=== PATIENT | female | born 1950 | race Caucasian/White ===

== ENCOUNTER 2017-10-06 17:11 | Emergency (ER) | payer MEDICARE, SELFPAY ==
--- NOTE | 2017-10-06 17:17 | XR_ITS ---
XR ankle LT min 3V, XR foot LT min 3V Ordering Physician: Colleen Winters Patient Age: 67 years: Female HISTORY: ITS.REASON: pain think I sprained it Ankle injury. Sprain. Lateral foot and ankle pain. TECHNIQUE LEFT FOOT 3 view LEFT ANKLE: 3 view left ankle COMPARISON :No previous ======= LEFT FOOT 3 view Acute fracture transverses the base of fifth metatarsal The fracture line continues to the proximal articular surface of fifth metatarsal , at its articulation with the cuboid. = This reflects Pseudo-Talley fracture here. Just over 1 mm distraction lateral aspect, but no significant displacement or offset. Specifically note Congruent relationships remain articular cortex There is ossification overlying proximal lateral margin of the cuboid. Accessory ossicles can occur here-os perineum. However on close inspection there is irregular appearance at its junction with the cuboid on the oblique foot image. Best Cannot exclude a subtle fracture here with this appearance. A soft tissue swelling is seen overlying the lateral aspect of foot and extending towards ankle. Advanced arthritic changes are noted at the first MTP joint. Joint space narrowing with marginal osteophytes. Sclerosis with near [id number] appearance at first MTP joint. The other toes appear intact. Only minor if any changes perhaps at the PIP joint fifth toe. Fusion between the middle and distal phalanx fifth toe. ====== LEFT ANKLE 3 views The irregular curvilinear calcification is seen just inferior to tip of the lateral malleolus. On this may indeed reflect a small avulsion fracture here as well.. Dystrophic calcification from old injury could yield a similar appearance. Prominent soft tissue swelling is seen overlying this area lateral malleolus further supporting the suspicion of acute injury There is some minimal dystrophic calcification just off the tip of the medial malleolus which likely reflects old feature. The ankle mortise intact. The dome of talus intact. Subtalar region unremarkable. Again the fracture base of fifth metatarsal again noted A generous plantar calcaneal spur noted ~9 mm length --------IMPRESSION 1. Pseudo-Talley fracture fifth metatarsal Nondisplaced Fracture transversing base of fifth metatarsal 2.. Curvilinear fragment or/ calcification just inferior to the tip of lateral malleolus. --Suspect for avulsion fracture particularly with the prominent associated focal soft tissue swelling here as well. (Dystrophic calcifications from old injury could yield some appearance) 3. Osseous density overlying the cuboid.- Initially felt was accessory ossicle; however there is slight irregular contour at underlying cuboid, thus cannot exclude fracture fragment here. 4. Findings requireOrthopedic follow-up and evaluation
[2017-10-06 17:45] VITALS: BP 143/84; PULSE 96; RESP 20; TEMP 36.6; O2SAT 100; BMI 42.8
--- NOTE | 2017-10-06 18:00 | HMH.EDUTC ---
[facility] [place] Clinical Impression: Fracture of metatarsal of left foot, closed Qualifiers: Encounter type: initial encounter Metatarsal bone: fifth Fracture alignment: nondisplaced Qualified Code(s): S92.355A - Nondisplaced fracture of fifth metatarsal bone, left foot, initial encounter for closed fracture Disposition: Home, Self-Care Condition on Discharge: Good Instructions: How to Use Crutches, DI for Foot Fracture, How To Perform RICE (Rest, Ice, Compress, Elevate), How to Take Care of Your Splint Additional Instructions: * non weight bearing until you see Dr. Yoon * Rest * ice w/ a cold pack or frozen bag of vegetables 15-20 mins several times a day but no more than once a hour. Do this for up to 3 days. * splint until you see specialist. Can not get wet. Do not remove. Check to ensure not too tight by monitoring you toes as we discussed. If getting more painful or changing colors, be sure to follow up for splint check * Elevate with foot above your heart as much as possible to help reduce swelling and therefore, pain * Ibuprofen every 6 hours as needed for pain and inflammation. If you need something more, you can take tylenol every 4 hours as needed as long as your primary care provider has told you it is ok to take these medications based on your history Referrals: Annie Yoon DPM [Physician] - (Call Monday. Report seen in [facility] Monday evening. Diagnosed 5th metatarsal fracture. Placed in orthoglass splint and made nonweight bearing. Told to call for follow up appointment) Time of Disposition: 18:05 Medical Decision Making - Eros Inquiry Pt receiving controlled substance: No Vital Signs: 10/06/17 17:45 10/06/17 18:28 Temperature 97.9 F 97.9 F Temperature Source Oral Oral Pulse Rate 96 H Pulse Rate [Right Radial] 96 H Respiratory Rate 20 20 Blood Pressure 143/84 Blood Pressure [Right Arm] 143/84 Blood Pressure Mean [Right Arm] 103 Blood Pressure Source Automatic Cuff Blood Pressure Source [Right Arm] Automatic Cuff Blood Pressure Position Sitting Blood Pressure Position [Right Arm] Sitting 02 Sat by Pulse Oximetry 100 Oxygen Delivery Method Room Air Room Air - Radiology Data #1 Image(s): Ankle, Foot/Toes Image Reviewed: Yes I reviewed the patient's radiology image w/the ED provider Preliminary Findings: Abnormal Rvwd w/ Dr. Urbina, ER . nondisplaced fracture base 5th metacarpal [facility] [place] - General Stated complaint: AO [id number] foot injury Time Seen by Provider: 10/06/17 17:50 Mode of Arrival: Family Vehicle Source of Information: Patient Limitations: No Limitations Description of Symptoms (Recalled from Triage Doc. by RN): PT STATES THIS AFTERNOON SHE MISSED A STEP AND FELL INJURING HER L FOOT. HEENT Symptoms (Recalled from RN notes): No Resp Symptoms (Recalled from RN notes): No Skin Symptoms (Recalled from RN notes): No MS Symptoms (Recalled from RN notes): Yes (INJURED LEFT FOOT) Functional Status (Recalled from RN notes): NA - History of Present Illness Provider Complaint: c/o left foot and ankle pain. Started this afternoon after missing a step causing her to fall completely. I think I twisted it . + bruising. pain worse with weight bearing. Hasn't taken anything. Wanting xrays. - Related Data Allergies Allergy/AdvReac Type Severity Reaction Status Date / Time No Known Drug Allergies Allergy Unknown Verified 10/06/17 17:52 - Worker's Comp Is this a Worker's Comp case?: No [facility] History I have reviewed the patient's past medical history: Yes Medical History: Denies:: Cancer, Diabetes Mellitus Type 1, Diabetes Mellitus Type 2, Hypertension, MRSA Other Medical History: Reports: Sinus Problems, Other (allergies) Other Surgeries: Yes: Other Amputation: No Fractures: No - Social History Smoking Status: Never smoker Alcohol Intake: never - Psychiatric History Expresses thoughts of harming self/others: None Suicide Plan Description: No Plan ROS Obtained:
--- NOTE | 2017-10-06 18:05 | ED_ITS ---
[facility] [place] Clinical Impression: Fracture of metatarsal of left foot, closed Qualifiers: Encounter type: initial encounter Metatarsal bone: fifth Fracture alignment: nondisplaced Qualified Code(s): S92.355A - Nondisplaced fracture of fifth metatarsal bone, left foot, initial encounter for closed fracture Disposition: Home, Self-Care Condition on Discharge: Good Instructions: How to Use Crutches, DI for Foot Fracture, How To Perform RICE ( Rest, Ice, Compress, Elevate), How to Take Care of Your Splint Additional Instructions: * non weight bearing until you see Dr. Yoon * Rest * ice w/ a cold pack or frozen bag of vegetables 15-20 mins several times a day but no more than once a hour. Do this for up to 3 days. * splint until you see specialist. Can not get wet. Do not remove. Check to ensure not too tight by monitoring you toes as we discussed. If getting more painful or changing colors, be sure to follow up for splint check * Elevate with foot above your heart as much as possible to help reduce swelling and therefore, pain * Ibuprofen every 6 hours as needed for pain and inflammation. If you need something more, you can take tylenol every 4 hours as needed as long as your primary care provider has told you it is ok to take these medications based on your history Referrals: Annie Yoon DPM [Physician] - (Call Monday. Report seen in [facility] Monday evening. Diagnosed 5th metatarsal fracture. Placed in orthoglass splint and made nonweight bearing. Told to call for follow up appointment) Time of Disposition: 18:05 Medical Decision Making - Eros Inquiry Pt receiving controlled substance: No Vital Signs: 10/06/17 17:45 10/06/17 18:28 Temperature 97.9 F 97.9 F Temperature Source Oral Oral Pulse Rate 96 H Pulse Rate [Right Radial] 96 H Respiratory Rate 20 20 Blood Pressure 143/84 Blood Pressure [Right Arm] 143/84 Blood Pressure Mean [Right Arm] 103 Blood Pressure Source Automatic Cuff Blood Pressure Source [Right Arm] Automatic Cuff Blood Pressure Position Sitting Blood Pressure Position [Right Arm] Sitting 02 Sat by Pulse Oximetry 100 Oxygen Delivery Method Room Air Room Air - Radiology Data #1 Image(s): Ankle, Foot/Toes Image Reviewed: Yes I reviewed the patient's radiology image w/the ED provider Preliminary Findings: Abnormal Rvwd w/ Dr. Urbina, ER . nondisplaced fracture base 5th metacarpal [facility] [place] HPI - General Stated complaint: AO [id number] foot injury Time Seen by Provider: 10/06/17 17:50 Mode of Arrival: Family Vehicle Source of Information: Patient Limitations: No Limitations Description of Symptoms (Recalled from Triage Doc. by RN): PT STATES THIS AFTERNOON SHE MISSED A STEP AND FELL INJURING HER L FOOT. HEENT Symptoms (Recalled from RN notes): No Resp Symptoms (Recalled from RN notes): No Skin Symptoms (Recalled from RN notes): No MS Symptoms (Recalled from RN notes): Yes (INJURED LEFT FOOT) Functional Status (Recalled from RN notes): NA - History of Present Illness Provider Complaint: c/o left foot and ankle pain. Started this afternoon after missing a step causing her to fall completely. I think I twisted it . + bruising. pain worse with weight bearing. Hasn't taken anything. Wanting xrays. - Related Data Allergies Allergy/AdvReac Type Severity Reaction Status Date / Time No Known Drug Allergies Allergy Unknown Verified 10/06/17 17:52 - Worker's Comp
[2017-10-06 18:28] VITALS: BP 143/84; PULSE 96; RESP 20; TEMP 36.6; O2SAT 100
== END 2017-10-06 18:25 | disposition home or self-care (01) ==
PROVIDERS: Emergency Provider Nurse Practitioner Family; Family Provider Family Medicine; PCP Family Medicine
DX: S92.355A Nondisplaced fracture of fifth metatarsal bone, left foot, initial encounter for closed fracture (principal); W10.9XXA Fall (on) (from) unspecified stairs and steps, initial encounter; Y92.019 Unspecified place in single-family (private) house as the place of occurrence of the external cause
CPT/HCPCS: 29515; G0463; 73610; 73630; 99203

== ENCOUNTER → 2017-11-14 10:42 | Outpatient (CLI) | payer MEDICARE, SELFPAY ==
--- NOTE | 2017-11-14 10:42 | XR_ITS ---
XR foot wt bearing LT 3V HISTORY: ITS.REASON: pain ORDERING PHYSICIAN: Annie Yoon DPM PATIENT AGE: 67 years COMPARISON: None FINDINGS: There are moderate osteoarthritic changes of the first metatarsophalangeal joint. There is a healing fracture of the base of the fifth metatarsal with minimal distraction of the fracture fragments by 2 to 3 mm. No other significant anomalies evident. IMPRESSION: Healing nondisplaced transverse fracture at the base of the fifth metatarsal Osteoarthritis of the first MTP joint
== END ==
PROVIDERS: Visit Provider Podiatrist
DX: T14.8XXA Other injury of unspecified body region, initial encounter (principal)
CPT/HCPCS: 73630

== ENCOUNTER → 2017-12-11 11:38 | Outpatient (CLI) | payer MEDICARE, SELFPAY ==
--- NOTE | 2017-12-11 11:41 | XR_ITS ---
XR foot wt bearing LT 3V Ordering Physician: Annie Yoon DPM Patient Age: 67 years: Female HISTORY: ITS.REASON: FRACTURE FOLLOW-UP TECHNIQUE: 3 views left foot weightbearing COMPARISON :Left foot 11/14/2017 10/06/2017 FINDINGS Healing transverse fracture at base of fifth metatarsal again viewed. Stable position with progressive healing. We again see the mild distraction of the inferior fracture on oblique view and lateral view but this feature appears stable. It appears to be filling in with healing bone a more central at fifth MT Osteoarthritic first MTP joint. Plantar calcaneal spur measuring 11 to 12 mm. Mild pes planus noted Initially question slight additional sclerosis at the base of the third metatarsal on the frontal projection but appears intact and stable on the oblique view. There may be some early arthritic changes at the third and possibly fourth tarsometatarsal metatarsal joint. IMPRESSION: Progressive healing fracture base of fifth metatarsal
== END ==
PROVIDERS: Visit Provider Podiatrist
DX: T14.8XXA Other injury of unspecified body region, initial encounter (principal)
CPT/HCPCS: 73630

== ENCOUNTER → 2017-12-12 08:00 | Outpatient (CLI) | payer MEDICARE, SELFPAY ==
--- NOTE | 2017-12-12 08:07 | XR_ITS ---
XR ankle wt bearing LT min 3V HISTORY: Left ankle pain ITS.REASON: fracture follow-up ORDERING PHYSICIAN: Annie Yoon DPM PATIENT AGE: 67 years Comparison: ... 10/06/2017 FINDINGS: The small bone fragment is again seen just adjacent to the lateral malleolus and likely an old unfused avulsion chip fracture. A semiacute chip fracture cannot be entirely ruled out. There is spurring of the tip of the medial malleolus with mild focal narrowing of the ankle mortise medially.. Again noted is mild pes planus and prominent plantar calcaneal spur. IMPRESSION: Basically stable-appearing ankle with probably old chip fracture tip of lateral malleolus along with prominent spurring the medial malleolus. The fact that there appears be slightly less soft tissue swelling laterally on today's exam is somewhat favor a recent acute chip fracture and suggest continued follow-up
== END ==
PROVIDERS: Visit Provider Podiatrist
DX: S99.192A Other physeal fracture of left metatarsal, initial encounter for closed fracture (principal); S82.62XA Displaced fracture of lateral malleolus of left fibula, initial encounter for closed fracture
CPT/HCPCS: 73610

== ENCOUNTER 2018-03-07 15:00 | Outpatient (RCR) | payer MEDICARE, SELFPAY ==
--- NOTE | 2018-02-28 15:58 | HMH.PTOPEV ---
PT Outpatient Evaluation Rehab PT Outpatient Evaluation Start: 02/28/18 15:07 Freq: Status: Active Protocol: Document 02/28/18 15:46 RUBI (Rec: 02/28/18 15:54 PHORCRISTHIAN [id number]) Electronically Signed By Andrei Tiwari, PT 02/28/18 15:46 Outpatient Therapy Subjective History Subjective History Pt is 67 yowf who presents with c/o increased right calf pain x ~ 2 wks. Pt reports she was treated for a left 5th MT fx with a cam walker beginning ~5 mos ago and she thinks this irritated her right LE. However, she irritated it further ~ 2 wks ago while getting into a vehicle. She reports the pain is considerably less since then, but her calf continues to feel tight. She reports the pain is also worse in the am upon getting out of bed. She also reports PMH of right foot plantar fasciitis diagnosed ~ 6 yrs ago. Chief Complaint Pain Symptom Type Ache Symptoms Relieved By Rest/Positioning Symptoms Aggravated By Walking Prior Functional Limitations None Current Functional Limitations Walking Symptom Description Intermittent Activity Dependent Level of pain today (0-10) 0 Pain scale - at its worst (0-10) 5 Ankle/Foot Eval Gait Observation General Gait Pattern Observation No Deviations/Normal Palpation Tenderness right Ankle/Foot Palpation Findings Tenderness Ankle/Foot Palpation Overall Comment gastroc ROM Ankle/Foot ROM Reason Not Measured Within Functional Limits MMT Ankle Dorsiflexion Strength Grade 5 Normal Ankle Plantarflexion Strength Grade 5 Normal Foot Eversion Strength Grade 5 Normal Foot Inversion Strength Grade 5 Normal Outpatient Therapy Assessment Impairments Problems/Impairmments Palpation Tenderness Impaired Walking Subjective C/O Pain Impaired Self Care/Self Management Prognosis Rehab Potential Good Clinical Impression Consistent with Gastroc strain Short Term Goals Number of Weeks 4 Decreased Palpation Tenderness Yes: to min Increase Ability to Walk Yes: 15 min without pain Decrease Subjective C/O Pain Yes: 07/29 Patient to be Ind w/
== END 2018-03-07 15:01 | disposition home or self-care (01) ==
LOC: PT 15:00
PROVIDERS: Family Provider Family Medicine; Visit Provider Nurse Practitioner
DX: M79.661 Pain in right lower leg (principal)
CPT/HCPCS: 97035; 97110; 97140; 97163

== ENCOUNTER → 2018-11-01 12:45 | Outpatient (CLI) | payer MEDICARE, SELFPAY ==
--- NOTE | 2018-11-01 12:48 | XR_ITS ---
XR DEXA axial skeleton HISTORY: ITS.REASON: OSTEOPENIA ORDERING PHYSICIAN: Jake Abebe MD PATIENT AGE: 68 years COMPARISON: 11/25/2016 FINDINGS: The BMD measured at the Total Right femoral neck is 0.683 g/cm squared with a T score of -2.6. This is considered Osteoporotic according to the World Health Organization criteria. Fracture risk is High. Treatment is advised. L1 L4 density has a T score of -1.0 and has decreased by 2%. Hip density has decreased by 9% IMPRESSION: Osteoporosis with high fracture risk. Treatment is advised. Suggest follow-up exam October 2019
== END ==
PROVIDERS: PCP Family Medicine; Visit Provider Family Medicine
DX: M81.0 Age-related osteoporosis without current pathological fracture (principal)
CPT/HCPCS: 77080

== ENCOUNTER → 2018-12-21 14:07 | Outpatient (CLI) | payer MEDICARE, SELFPAY ==
--- NOTE | 2018-12-21 14:27 | XR_ITS ---
XR knee RT 3V HISTORY: ITS.REASON: RT KNEE PAIN ORDERING PHYSICIAN: Jake Abebe MD PATIENT AGE: 68 years COMPARISON: None FINDINGS: There are moderate osteoarthritic changes of the medial compartment with mild osteoarthritis of the patellofemoral joint. There is minimal lateral subluxation of the tibia 4 to 5 mm. Small suprapatellar effusion also some affected. No fracture or dislocation. No lytic or blastic change. Serpiginous densities noted over the medial thigh and leg consistent with varicosities. IMPRESSION: Ordered osteoarthritis of the right knee with small knee joint effusion
== END ==
PROVIDERS: PCP Family Medicine; Visit Provider Family Medicine
DX: M25.561 Pain in right knee (principal)
CPT/HCPCS: 73562

== ENCOUNTER → 2019-01-18 09:22 | Outpatient (CLI) | payer MEDICARE, SELFPAY ==
--- NOTE | 2019-01-18 09:26 | XR_ITS ---
PROCEDURE: XR KNEE RT 4V CLINICAL INDICATION: Rt knee pain COMPARISON: No exams were available for comparison FINDINGS: No fracture or dislocation. No lytic or blastic change. There is normal mineralization. There are moderate osteoarthritic changes of the medial compartment and patellofemoral joint. Other findings:None. IMPRESSION: Osteoarthritis Dictated by: Joel Mcmahan MD 01/18/2019 16:07 Signed by: <Electronically signed by Joel Mcmahan MD in [place]> 01/18/2019 16:07
== END ==
PROVIDERS: PCP Family Medicine; Visit Provider Orthopaedic Surgery
DX: M25.561 Pain in right knee (principal)
CPT/HCPCS: 73564

== ENCOUNTER 2019-02-08 14:00 | Outpatient (RCR) | payer MEDICARE, SELFPAY ==
--- NOTE | 2019-01-02 15:00 | HMH.PTOPEV ---
PT Outpatient Evaluation Rehab PT Outpatient Evaluation Start: 01/02/19 13:23 Freq: Status: Active Protocol: Document 01/02/19 14:35 TRISTON (Rec: 01/02/19 15:00 ANALIAMICHELL [id number]) Electronically Signed By Maximiliano Swift, PT 01/02/19 14:35 Outpatient Therapy Subjective History Subjective History Patient is a 68 year old female presenting to outpatient PT with reports of chronic knee pain with acute exacerbation starting approximately 2 weeks ago. Symptoms of insidious onset. Most recent diagnostics indicate R knee OA. Pt has multiple RLE vascularities with no reports of claudication. Comorbidities include elevated BMI. Chief Complaint Pain,Stiff,Weakness Symptom Type Ache Symptoms Relieved By Rest/Positioning,Ice,OTC Meds Symptoms Aggravated By Standing,Physical Activity, Walking Prior Functional Limitations Housework,Standing,Squatting, Recreation Activity,Walking, Stairs,Balance Current Functional Limitations Housework,Standing,Squatting, Recreation Activity,Walking, Stairs,Balance Symptom Description Intermittent Level of pain today (0-10) 2 Pain scale - at its best (0-10) 0 Pain scale - at its worst (0-10) 8 Hip/Knee Eval Gait Observation General Gait Pattern Observation Decrease Weight Bear (R) Assistive Device Assistive Devices Straight Cane Palpation Tenderness right Knee Palpation Finding Tenderness Knee Palpation Overall Comment Pes anserene, medial joint line MMT Hip Flexion Strength Grade 4- Good- Hip Abduction Strength Grade 4- Good- Hip Adduction Strength Grade 4- Good- Hip Extension Strength Grade 4- Good- Hip External Rotation Strength Grade 3+ Fair+ Hip Internal Rotation Strength Grade 3+ Fair+ Knee Extension Strength Grade 4- Good- Knee Flexion Strength Grade 4- Good- ROM Hip ROM Reason Not Measured Within Functional Limits Knee Extension Active Range of Motion ( -5 degrees) Knee Flexion Active Range of Motion ( 108 degrees) Knee ROM Limitations Soft Tissue Tightness Special Tests Hip Luz Test Positive Right Lyndon Test Positive Knee Anterior Drawer Test Negative Right Knee Medial-Late
== END 2019-02-08 14:05 | disposition home or self-care (01) ==
LOC: PT 14:00
PROVIDERS: PCP Family Medicine; Visit Provider Nurse Practitioner Family
DX: M25.561 Pain in right knee (principal); M25.361 Other instability, right knee
CPT/HCPCS: 97010; 97014; 97110; 97163; G0283

== ENCOUNTER → 2022-01-12 09:24 | Outpatient (CLI) | payer MEDICARE, SELFPAY | PROVIDERS: PCP Family Medicine; Visit Provider Surgery | DX: Z01.812 Encounter for preprocedural laboratory examination (principal); Z20.822 Contact with and (suspected) exposure to COVID-19; Z13.810 Encounter for screening for upper gastrointestinal disorder; Z12.11 Encounter for screening for malignant neoplasm of colon | CPT/HCPCS: C9803; U0003; U0005 ==

== ENCOUNTER 2022-01-14 09:24 | Day surgery (SDC) | payer MEDICARE, SELFPAY ==
[2022-01-10 11:35] VITALS: BMI 46.8
[2022-01-14 09:41] VITALS: BP 142/77; PULSE 97; RESP 17; TEMP 36.8; O2SAT 95
--- NOTE | 2022-01-14 10:41 | EXP.ANES.CKL ---
PFSH PFSH Medical History Arthritis Cataract UTI (urinary tract infection) Surgical History H/O breast biopsy H/O cataract removal with insertion of prosthetic lens Family History Other Cancer Diabetes Social History Smoking Status: Never smoker second hand exposure: No alcohol intake: never substance use type: denies use current occupational status: retired Travel in the last 8 weeks: Inside the [place] household members: none housing: house caffeine: Yes [facility] Anesthesia Checklist Patient Identification Patient Identification: Arm Band and Verbal (Name & ) Structural Data Admitted From: Home Planned Operative Procedure/s: Colonoscopy Consent for Planned Operative Procedure(s) Verified: Yes NPO Status Verified Time NPO: 06:25 Additional verifications Anesthesia Reactions: No Airway Assessment C-Spine Mobility Assessed: Yes TMJ Mobility Assessed: Yes Dentition: Good Dentition Neurological Assessment Level of Consciousness: Awake Hx Seizures: No Numbness or tingling in extremities: No Anesthesia Plan Anesthesia Risk discussed: Yes Anesthesia Plan: Verified ASA Class: II Anesthesia Type: MAC
[2022-01-14 10:56] VITALS: O2SAT 99
--- NOTE | 2022-01-14 11:40 | HMH.SCOPE ---
Procedure: Date: 01/14/22 Patient Date of :: 1950 Procedure Performed:: Total colonoscopy with polypectomy using snare and biopsy forceps Indications:: Patient is a 71-year-old female. She has a family history of colon cancer in her brother diagnosed at age 59. Her last colonoscopy was done October [address] Julius Vasquez and she had 3 tubular adenomas and 2 sessile serrated adenomas removed. 3-year follow-up was recommended. Performing Provider:: Dilan Ordonez MD Referring Provider:: Florencio Martinez MD Sedation:: MAC sedation Procedure:: Patient was taken to endoscopy procedure room. She was positioned in lateral decubitus position. Adequate intravenous sedation was achieved with anesthesia titration propofol. Variable stiffness Olympus colonoscope was inserted via the anus. It was advanced to the cecum. Ileocecal valve and appendiceal orifice were clearly identified. Colonoscope was slowly withdrawn through the colon. She had a small polyp in the descending colon removed with cold snare. The rectosigmoid region there were a couple of hyperplastic appearing polyps removed with snare and cold forceps. In the distal rectum there was a tiny adenomatous appearing polyp removed with cold snare with biopsy forceps used to ensure complete removal at the base. Retroflexion revealed nonpathologic internal hemorrhoids. Colonoscope was withdrawn. She did have some appreciable sigmoid diverticulosis noted. Findings:: Sigmoid diverticulosis Polyps as noted above Recommendations:: Follow-up colonoscopy pending pathology Complications:: None immediately apparent Estimated blood obtained (mL): 3
[2022-01-14 11:41] VITALS: BP 115/65; PULSE 75; RESP 18; TEMP 36.2; O2SAT 96
[2022-01-14 11:51] VITALS: BP 110/73; PULSE 76; RESP 16; O2SAT 97
[2022-01-14 12:01] VITALS: BP 117/63; PULSE 77; RESP 16; O2SAT 98
[2022-01-14 12:11] VITALS: BP 138/79; PULSE 77; RESP 16; TEMP 36.2; O2SAT 98
== END 2022-01-14 12:11 | disposition home or self-care (01) ==
PROVIDERS: PCP Family Medicine; Visit Provider Surgery
PROC: 0DJD8ZZ Inspection of Lower Intestinal Tract, Via Natural or Artificial Opening Endoscopic (ICD-10-PCS; principal; 2022-01-14 10:30)
DX: Z12.11 Encounter for screening for malignant neoplasm of colon (principal); K63.5 Polyp of colon; Z86.010 Personal history of colon polyps; Z80.0 Family history of malignant neoplasm of digestive organs; Z79.899 Other long term (current) drug therapy
CPT/HCPCS: 45380; 45385; 88305; J2704

== ENCOUNTER → 2022-07-22 08:32 | Outpatient (CLI) | payer MEDICARE, SELFPAY ==
--- NOTE | 2022-07-22 08:35 | XR_ITS ---
FINAL REPORT TECHNIQUE: Bone densitometry calculations of the lumbar spine and right hip were obtained. CLINICAL HISTORY: . post menopausal screening FINDINGS: DEXA BONE DENSITY AXIAL SKELETON Using L1-4, the bone mineral density of the spine is 1.037 g/cm2, corresponding to T-score of -0.1 with a Z-score of 2.1. Using the right hip, the bone mineral density of the femoral neck is 0.632 g/cm2, corresponding to a T-score of -2.0 with a Z-score of -0.1. NOTE: T-score: Standard deviation compared with peak bone mass of young adult mean. *Following the recommendations of the International Society of Bone densitometry, classification of hip BMD is based on the lower of two T-scores; total hip or femoral neck. IMPRESSION: Normal bone mineral density of the lumbar spine. Diminished bone mineral density of the right hip consistent with osteopenia. FRAX not reported because patient is being treated for osteoporosis. Reviewed, Interpreted and Dictated by Usha Tiwari MD Transcribed by Astrid Talley Authenticated and [facility]
== END ==
PROVIDERS: PCP Family Medicine; Visit Provider Family Medicine
DX: Z78.0 Asymptomatic menopausal state (principal)
CPT/HCPCS: 77080

== ENCOUNTER → 2022-11-30 11:03 | Outpatient (CLI) | payer MEDICARE, SELFPAY ==
--- NOTE | 2022-11-30 11:11 | XR_ITS ---
FINAL REPORT CLINICAL HISTORY: LT KNEE PAIN, SWELLING, FELL IN SEPTEMBER 2022 COMPARISON: 01/18/2019 FINDINGS: LEFT KNEE SERIES Three views of the left knee were obtained. There is no acute fracture or dislocation. There is mild degenerative change. There is no soft tissue abnormality. IMPRESSION: Mild degenerative change. Reviewed, Interpreted and Dictated by Dilan Acosta III, MD Transcribed by Jaylnee Reyez Authenticated and [facility]
== END ==
PROVIDERS: PCP Family Medicine; Visit Provider Family Medicine
DX: M25.562 Pain in left knee (principal)
CPT/HCPCS: 73562

== ENCOUNTER 2024-07-05 09:10 | Outpatient (CLI) | payer MEDICARE, SELFPAY ==
[2024-07-05 15:44] LABS: Influenza B, PCR Not Detected (NotDetected)
[2024-07-05 16:14] LABS: Coronavirus 19, PCR Detected (NotDetected); Influenza A, PCR Detected (NotDetected)
== END 2024-07-05 23:59 | disposition home or self-care (01) ==
LOC: LAB.DROPOF 07-07 04:41
PROVIDERS: PCP Student in an Organized Health Care Education/Training Program; Visit Provider Student in an Organized Health Care Education/Training Program
DX: R09.81 Nasal congestion (principal); R05.9 Cough, unspecified; J01.40 Acute pansinusitis, unspecified; Z20.822 Contact with and (suspected) exposure to COVID-19
CPT/HCPCS: 87636

== ENCOUNTER 2024-11-18 09:57 | Outpatient (CLI) | payer MEDICARE, SELFPAY ==
--- OUTSIDE RECORDS SUMMARY | 2024-05-03 05:00 | XMS_ITS ---
Author Organization [facility] Address [address] [place] [id number] Care Team Providers Care Monument Erector Name Role Phone Florencio Martinez Unavailable [phone] Allergies No Known Allergies Results Component Value Reference Range Notes P-Comprehensive Metabolic Pa dee (CMP) Reviewed date:05/07/2024 07:54:16 AM Interpretation:Normal Performing Lab: Notes/Report: Test performed by [facility] [address] [place] [address] , [address], [place] [address] Eliazar Sorto MD, Chief Lending Officer CLIA: [id number] Sodium 140 135-145 mmol/L Potassium 4.5 3.5-5.3 mmol/L Chloride 102 97-108 mmol/L CO2 25 22-32 mmol/L Glucose 91 65-99 mg/dL BUN 15 8-23 mg/dL Creatinine 0.67 0.50-1.00 mg/dL Calcium 9.5 8.6-10.4 mg/dL eGFR by Creatinine 92 >59 mL/min/1.73m2 Protein 6.6 6.0-8.3 g/dL Albumin 3.9 3.5-5.3 g/dL Alkaline Phosphatase 87 35-121 IU/L ALT (SGPT) 14 <5-47 IU/L AST (SGOT) 19 <5-40 IU/L Bilirubin, Total 0.4 <0.2-1.2 mg/dL A/G Ratio 1.4 1.1-2.5 P-T4 Free (thyroxine) Reviewed date:05/07/2024 07:54:17 AM Interpretation:Normal Performing Lab: Notes/Report: Test performed by [facility] [address] [place] [address] , [address], [place] [address] Eliazar Sorto MD, Chief Lending Officer CLIA: [id number] Thyroxine Free (free T4) 1.32 0.86-1.76 ng/dL P-Lipid Panel Reviewed date:05/07/2024 07:54:17 AM Interpretation:Normal Performing Lab: Notes/Report: Test performed by [facility] [address] [place] [address] , [address], [place] [address] Eliazar Sorto MD, Chief Lending Officer CLIA: [id number] Cholesterol 174 <200 mg/dL Triglycerides 94 <150 mg/dL HDL Cholesterol 58 >39 mg/dL Cholesterol / HDL Ratio 3.00 0.00-4.44 Ratio Non-HDL Cholesterol 116 <130 mg/dL LDL Cholesterol (Calculation) 97 <130 mg/dL LDL Cholesterol Levels* Less than 100 mg/dL Optimal 100 to 129 mg/dL Near Optimal/ Above Optimal 130 to 159 mg/dL Borderline High 160 to 189 mg/dL High 190 mg/dL and above Very High * Categories as recommended by the 2004 ATPIII guidelines LDL/HDL Ratio 1.7 <3.3 Ratio LDL Cholesterol Patient History Test Date: 05/04/2023 LDL Results: 117 Units: mg/dL % Change: - Test Date: 05/03/2024 LDL Results: 97 Units: mg/dL % Change: -17% P-TSH Reviewed date:05/07/2024 07:54:17 AM Interpretation:Normal Performing Lab: Notes/Report: Test performed by [facility] [address] [place] [address] , [place] [address] Eliazar Sorto MD, Chief Lending Officer CLIA: [id number] TSH 4.03 0.43-5.25 mU/L P-Vitamin D 25-Hydroxy Reviewed date:05/07/2024 07:54:17 AM Interpretation:28.0 Performing Lab: Notes/Report: Test performed by [facility] [address] [place] [address] [address], [place] [address] Eliazar Sorto MD, Chief Lending Officer CLIA: [id number] Vitamin D 25-Hydroxy 28.0 30.0-100.0 ng/mL Interpretation of Vitamin D 25 OH: < 20 ng/mL - Deficiency 20 - 29 ng/mL - Insufficiency 30 - 100 ng/mL - Sufficiency > 100 ng/mL - Super-therapeutic- toxicity may occur above this level. Clinical correlation required. REASON FOR VISIT 6 months Medications Medication SIG (Take, Route, Frequency, Duration) Notes Start Date End Date Status Montelukast Sodium 10 MG 1 tablet Orally once daily; Duration: 90 days Active Levothyroxine Sodium 25 MCG 1 tab(s) ora lly once a day; Duration: 90 days Active Alendronate Sodium 70 MG 1 tab(s) orally once a week Active Levocetirizine Dihydrochloride 5 MG 1 tab(s) orally once a day (in the evening); Duration: 90 days Active Meloxicam 15 MG 1 tablet Orally once daily; Duration: 90 days Active Calcium Carbonate-Vitamin D 600-5 MG-MCG 1 tab PO Daily Active MiraLax 17 GM/SCOOP as directed Orally Active Vital Signs Blood pressure systolic 130 mm Hg 05/03/20 24 Blood pressure diastolic 76 mm Hg 024 Heart Rate 94 /min 05/03/2024 Height 69 in 05/03/2024 Weight 319.2 lbs 05/03/2024 BMI 47.13 kg/m2 05/03/2024 Encounters Encounter Location Date Provider Diagnosis [facility] [facility] [address] [facility] [address] [place] [id number] 05/03/2024 Florencio Martinez Acquired hypothyroid ism E03.9 ; Vitamin D deficiency E55.9 ; Age-related osteoporosis without current pathological fracture M81.0 ; Morbid obesity E66.01 and Allergic rhinitis, unspecified seasonality, unspecified trigger J30.9 Assessments Encounter Date Diagnosis (ICD Code) Assessment Notes Treatment Notes Treatment Clinical Notes Section Notes 05/03/2024 Acquired hypothyroidism (ICD-10 - E03.9) 05/03/2024 Vitamin D deficiency (ICD-10 - E55.9) 05/03/2024 Age-related osteoporosis without current pathological fracture (ICD-10 - M81.0) 05/03/2024 Morbid obesity (ICD-10 - E66.01) 05/03/2024 Allergic rhinitis, unspecified seasonality, unspecified trigger (ICD-10 - J30.9) Plan Of Treatment Medication Medication Name Sig Start Date Stop Date Notes Montelukast Sodium 10 MG 1 tablet Orally once daily; Duration: 90 days Levothyroxine Sodium 25 MCG 1 tab(s) ora lly once a day; Duration: 90 days Alendronate Sodium 70 MG 1 tab(s) orally once a week Levocetirizine Dihydrochlori de 5 MG 1 tab(s) orally once a day (in the evening); Duration: 90 days Meloxicam 15 MG 1 tablet Orally once daily; Duration: 90 days Next Appt Details Follow Up: 6 Months, Reason: Provider Name:Florencio morales, 05/05/2025 09:15:00 AM, [address] [facility], [address], [place], [id number], Progress Notes * LENARD SULLIVANOB:1950 (74 yo F)Acc No.[id number]:05/03/2024 Progress Notes Patient: ILYA GONSALEZ Provider: Jam Martinez M.D. :1950 A ge:73 Y S ex:Female Date:05/03/2024 Address:[address] [place], [place] [phone] Subjective: * Chief Complaints: * 1 . 6 months. * HPI: E ndocrinology: 73 year old female presents with c/o Hypothyroidism P t here for 6 mo f/u, pt states she is doing well and does not have any concerns. * ROS: D ERMATOLOGY: no R alyse. n o H yoly. G ASTROENTEROLOGY: no N ausea. n o V omiting. U ROLOGY: no D ifficulty urinating. n o B lood in urine. * Medical History: H ypertension, Allergic Rhinitis, Osteoporosis, Dx: 2019, Colon Polyps, Bilateral Knee Osteoarthritis, Vitamin D Deficiency, Hypothyroidism. * Surgical History: L T Shoulder Lipoma Removal , LT Breast Benign Tumor Removal , Cataract , Colonoscopy . * Hospitalization/Major Diagno stic Procedure: D enies Past Hospitalization. * Family History: F ather: , diagnosed with Hypertension. M other: , diagnosed with Cancer.?Paternal Grand Father: , diagnosed with Stroke. P aternal Grand Mother: , diagnosed with Stroke. M aternal Grand Father: . M aternal Grand Mother: .?Siblings: diagnosed with Cancer. 1 brother(s) . . * Social History: C URRENT TOBACCO USE: No . C affeine: yes, frequency: soft drinks and tea. 6-8 drinks a day. Marital Status: Single. Alcohol: no. Occupation: retired. Recreational drug use: no. * Medications: T aking MiraLax 17 GM/SCOOP Powder as directed Orally , Taking Calcium Carbonate-Vitamin D 600-5 MG-MCG Tablet 1 tab PO Daily , Taking Alendronate Sodium 70 MG Tablet 1 tab(s) orally once a week , Taking Levocetirizine Dihydrochloride 5 MG Tablet 1 tab(s) orally once a day (in the evening) , Taking Levothyroxine Sodium 25 MCG Tablet 1 tab(s) orally once a day , Taking Meloxicam 15 MG Tablet TAKE 1 TABLET BY MOUTH ONCE DAILY WITH FOOD FOR INFLAMMATION , Taking Montelukast Sodium 10 MG Tablet 1 tablet Orally once daily , Discontinued Dymista 137-50 MCG/ACT Suspension 1 spray(s) intranasally 2 times a day , Discontinued Vitamin D-3 125 MCG (5000 UT) Tablet 1 cap(s) orally once a week , Medication List reviewed and reconciled with the patient * Allergies: N .K.D.A. Objective: * Vitals: W t:319.2, Temp:97.8, BP:130/76, HR:94, Nurse:rigoberto, Ht: 69, BMI:47.13. * Examination: G eneral Examination: General Appearance: N AD. H eart: R SR. L ungs:?clear to auscultation. P eripheral pulses: n ormal (2+) bilaterally. E xtremities:?1+ bilateral leg edema. Assessment: * Assessment: 1. A cquired hypothyroidism - E03.9 (Primary) 2 . V itamin D deficiency - E55.9 3 . A ge-related osteoporosis without current pathological fracture - M81.0? 4. M orbid obesity - E66.01 5 . A llergic rhinitis, unspecified seasonality, unspecified trigger - J30.9 Plan: * Treatment: Value Reference Range T hyroxine Free (free T4) 1.32 0.86-1.76 - ng/d L * Elva Lindquist 05/07/2024 7:5 4:03 AM >See phone encounter ?LAB: P-TSH (Collection Date & Time - 05/03/2024 12:17 PM)?Normal* Value Reference Range T SH 4.03 0.43-5.25 - mU/L * Elva Lindquist 05/07/2024 7:5 4:03 AM >See phone encounter 2.?Vitamin D deficiency?LAB: P-Vitamin D 25-Hydroxy (Collection Date & Time - 05/03/2024 12:17 PM)? 28.0* Value Reference Range V itamin D 25-Hydroxy 28.0 L 30.0-100.0 - ng/mL * Elva Lindquist 05/07/2024 7:5 4:03 AM >See phone encounter 3.?Age-related osteoporosis without current pathological fracture? Refill Alendronate Sodium Tablet, 70 MG, 1 tab(s), orally, once a week, 13, Refills 1.??4.?Morbid obesity?LAB: P-Comprehensive Metabolic Panel (CMP) (Collection Date & Time - 05/03/2024 12:17 PM)?Normal* Value Reference Range A /G Ratio 1.4 1.1-2.5 - * A lbumin 3.9 3.5-5.3 - g/dL * A lkaline Phosphatase 87 35-121 - IU/L * A LT (SGPT) 14 <5-47 - IU/L * A ST (SGOT) 19 <5-40 - IU/L * B ilirubin, Total 0.4 <0.2-1.2 - mg/dL * B UN 15 8-23 - mg/dL * C alcium 9.5 8.6-10.4 - mg/dL * C hloride 102 97-108 - mmol/L * C O2 25 22-32 - mmol/L * C reatinine 0.67 0.50-1.00 - mg/dL * G lucose 91 65-99 - mg/dL * P otassium 4.5 3.5-5.3 - mmol/L * S odium 140 135-145 - mmol/L * P rotein 6.6 6.0-8.3 - g/dL * e GFR by Creatinine 92 >59 - mL/min/1.73m2 * Elva Lindquist 05/07/2024 7:5 4:03 AM >See phone encounter ?LAB: P-Lipid Panel (Collection Date & Time - 05/03/2024 12:17 PM)?Normal* Value Reference Range C holesterol / HDL Ratio 3.00 0.00-4.44 - Ratio * C holesterol 174 <200 - mg/dL * H DL Cholesterol 58 >39 - mg/dL * L DL Cholesterol (Calculation) 97 <130 - mg/d L * L DL/HDL Ratio 1.7 <3.3 - Ratio * N on-HDL Cholesterol 116 <130 - mg/dL * T riglycerides 94 <150 - mg/dL * Elva Lindquist 05/07/2024 7:5 4:03 AM >See phone encounter 5.?Allergic rhinitis, unspecified seasonality, unspecified trigger? Refill Montelukast Sodium Tablet, 10 MG, 1 tablet, Orally, once daily, 90 days, 90, Refills 1;?Refill Levocetirizine Dihydrochloride Tablet, 5 MG, 1 tab(s), orally, once a day (in the evening), 90 days, 90, Refills 1.??6.?Others? Refill Meloxicam Tablet, 15 MG, 1 tablet, Orally, once daily, 90 days, 90, Refills 1.?? * Procedure Codes: G 2211 Complex e/[place], [address] VENIPUNCT, ROUTINE* * Follow Up: 6 Months * Images: Billing Information: * Visit Code: 84065 Office Visit, Est Pt., Level 4. * Procedure Codes: G2211 Complex e/[place]. [address] VENIPUNCT, ROUTINE*. * Electronic signature of Sharee Martinze MD on 11/18/2024 at 10:06 AM EDT Sign off status: Pending * Provider: Jam Martinez M.D. Date: 1 07/04/2023 Generated for Livia arreguin/Rafael/Charlessmitting on: 0 11/18/2024 10:06 AM EDT History and Physical Notes * HPI (History of Present Illness) Category Sub-Category Detail Notes Category Not es Endocrinology Hypothyroidism Pt here for 6 mo f/u, pt states she is doing well and does not have any concerns Examination Category Sub-Category Detail Notes Category Not es General Examination Heart: RSR Lungs: clear to auscultatio n Extremities: 1+ bilateral leg tayla ma General Appearance: NAD Peripheral pulses: normal (2+) bilatera lly
--- OUTSIDE RECORDS SUMMARY | 2024-11-01 05:00 | XMS_ITS ---
Author Organization [facility] Address [address] [facility] [address] [place] [id number] Care Team Providers Care Security Systems Technician Name Role Phone Florencio Martinez Unavailable [phone] Allergies No Known Allergies Results Component Value Reference Range Notes P-T4 Free (thyroxine) Reviewed date:11/12/2024 02:03:29 PM Interpretation: Performing Lab: Notes/Report: Test performed by [facility] [address] [place] [address] , [facility] [[email or web address]] [place] [address] Eliazar Sorto MD, Therapy Technician CLIA: [id number] Thyroxine Free (free T4) 1.23 0.86-1.76 ng/dL P-TSH Reviewed date:11/12/2024 02:03:29 PM Interpretation: Performing Lab: Notes/Report: Test performed by [facility] [address] [place] [address] , [facility] [[email or web address]] C, [place] [address] Eliazar Sorto MD, Therapy Technician CLIA: [id number] TSH 3.97 0.43-5.25 mU/L P-Vitamin D 25-Hydroxy Reviewed date:11/12/2024 02:03:29 PM Interpretation:39 Performing Lab: Notes/Report: Test performed by [facility] [address] [place] [address] , [address], [place] [address] Eliazar Sorto MD, Therapy Technician CLIA: [id number] Vitamin D 25-Hydroxy 39.2 30.0-100.0 ng/mL Interpretation of Vitamin D 25 OH: < 20 ng/mL - Deficiency 20 - 29 ng/mL - Insufficiency 30 - 100 ng/mL - Sufficiency > 100 ng/mL - Super-therapeutic- toxicity may occur above this level. Clinical correlation required. REASON FOR VISIT 6 month f/u Medications Medication SIG (Take, Route, Frequency, Duration) Notes Start Date End Date Status Levocetirizine Dihydrochloride 5 MG 1 tab(s) orally once a day (in the evening); Duration: 90 days Active Montelukast Sodium 10 MG 1 tablet Orally once daily; Duration: 90 days Active Calcium Carbonate-Vitamin D 600-5 MG-MCG 1 tab PO Daily Active Fluticasone Propionate 50 MCG/ACT 1 spray in each nostril Nasally daily 11/01/2024 Active Meloxicam 15 MG 1 tablet Orally once daily; Duration: 90 days Active Alendronate Sodium 70 MG 1 tab(s) orally once a week Active MiraLax 17 GM/SCOOP as directed Orally Active Levothyroxine Sodium 25 MCG 1 tab(s) ora lly once a day; Duration: 90 days Active Vital Signs Blood pressure systolic 134 mm Hg 11/02/19 25 Blood pressure diastolic 78 mm Hg 025 Heart Rate 88 /min 11/01/2024 Height 69 in 11/01/2024 Weight 313.2 lbs 11/01/2024 BMI 46.25 kg/m2 11/01/2024 Encounters Encounter Location Date Provider Diagnosis [place] [facility] [address] [id number] 11/01/2024 Florencio [place] Allergic rhinitis, unspecified seasonality, unspecified trigger J30.9 ; Age-related osteoporosis without current pathological fracture M81.0 ; Acquired hypothyroidism E03.9 ; Vitamin D deficiency E55.9 ; Osteoporosis screening Z13.820 and Morbid obesity E66.01 Assessments Encounter Date Diagnosis (ICD Code) Assessment Notes Treatment Notes Treatment Clinical Notes Section Notes 11/01/2024 Allergic rhinitis, unspecified seasonality, unspecified trigger (ICD-10 - J30.9) 11/01/2024 Age-related osteoporosis without current pathological fracture (ICD-10 - M81.0) 11/01/2024 Acquired hypothyroidism (ICD-10 - E03.9) 11/01/2024 Vitamin D deficiency (ICD-10 - E55.9) 11/01/2024 Osteoporosis screening (ICD-10 - Z13.820) 11/01/2024 Morbid obesity (ICD-10 - E66.01) Plan Of Treatment Medication Medication Name Sig Start Date Stop Date Notes Levocetirizine Dihydrochlori de 5 MG 1 tab(s) orally once a day (in the evening); Duration: 90 days Montelukast Sodium 10 MG 1 tablet Orally once daily; Duration: 90 days Fluticasone Propionate 50 MCG/ACT 1 spra y in each nostril Nasally daily 11/01/2024 Meloxicam 15 MG 1 tablet Orally once daily; Duration: 90 days Alendronate Sodium 70 MG 1 tab(s) orally once a week Levothyroxine Sodium 25 MCG 1 tab(s) ora lly once a day; Duration: 90 days Pending Test Test Name Order Date DEXA Hip and Spine 11/01/2024 Next Appt Details Follow Up: 6 Months, Reason: Provider Name:Florencio Gold , 05/05/2025 09:15:00 AM, [address] [facility] [address] [facility], [address] , [place], [place], [phone], Progress Notes * LENARD SULLIVANOB:1950 (74 yo F)Acc No.[id number]:11/01/2024 Progress Notes Patient: ILYA GONSALEZ Provider: Jam Martinez M.D. :1950 A ge:74 Y S ex:Female Date:11/01/2024 Address:[address] [place], [place] [phone] Subjective: * Chief Complaints: * 1 . 6 month f/u. * HPI: E ndocrinology: 74 year old female presents with c/o Hypothyroidism P t here for 6 mo f/u. Pt states she is doing well and does [...] Tablet 1 tab PO Daily , Taking Levothyroxine Sodium 25 MCG Tablet 1 tab(s) orally once a day , Taking Alendronate Sodium 70 MG Tablet 1 tab(s) orally once a week , Taking Montelukast Sodium 10 MG Tablet 1 tablet Orally once daily , Taking Levocetirizine Dihydrochloride 5 MG Tablet 1 tab(s) orally once a day (in the evening) , Taking Meloxicam 15 MG Tablet 1 tablet Orally once daily , Medication List reviewed and reconciled with the patient * Allergies: N .K.D.A. Objective: * Vitals: W t: 313.2, Temp: 97.8, BP: 134/78, HR: 88, Nurse: rigoberto, Ht: 69, BMI:46.25. * Examination: G eneral Examination: General Appearance: N AD. H eart: R SR. L ungs:?clear to auscultation. P eripheral pulses: n ormal (2+) bilaterally. E xtremities:?1+ bilateral leg edema. Assessment: * Assessment: 1. A llergic rhinitis, unspecified seasonality, unspecified trigger - J30.9 (Primary) ? 2 . A ge-related osteoporosis without current pathological fracture - M81.0 ?3. A cquired hypothyroidism - E03.9 4 . V itamin D deficiency - E55.9 5. O steoporosis screening - Z13.820 6 . M orbid obesity - E66.01 Plan: * Treatment: 2. A ge-related osteoporosis without current pathological fracture Refill Alendronate Sodium Tablet, 70 MG, 1 tab(s), orally, once a week, 13, Refills 1. I maging: DEXA Hip and Spine 3. A cquired hypothyroidism Refill Levothyroxine Sodium Tablet, 25 MCG, 1 tab(s), orally, once a day, 90 days, 90, Refills 1.? L AB: P-T4 Free (thyroxine) (Collection Date & Time - 11/01/2024 08:52 AM) Value Reference Range T hyroxine Free (free T4) 1.23 0.86-1.76 - ng/d L * Florencio Martinez T 11/03/2024 02:52:40 PM EDT >Lab results are satisfactory, sent to to inform. Mohini Berry 11/04/2024 03:59:44 PM EDT > left message for return call Mohini Berry 11/12/2024 02:03:13 PM EDT > pt informed of results ?LAB: P-TSH (Collection Date & Time - 11/01/2024 08:52 AM)* Value Reference Range T SH 3.97 0.43-5.25 - mU/L * Florencio Martinez T 11/03/2024 02:52:40 PM EDT >Lab results are satisfactory, sent to [facility] to inform. Mohini Berry 11/04/2024 03:59:44 PM EDT > left message for return call Mohini Berry 11/12/2024 02:03:13 PM EDT > pt informed of results 4.?Vitamin D deficiency?LAB: P-Vitamin D 25-Hydroxy (Collection Date & Time - 11/01/2024 08:52 AM)? 39* Value Reference Range V itamin D 25-Hydroxy 39.2 30.0-100.0 - ng/mL * Florencio Martinez T 11/03/2024 02:52:40 PM EDT >Lab results are satisfactory, sent to to inform. Mohini Berry 11/04/2024 03:59:44 PM EDT > left message for return call Mohini Berry 11/12/2024 02:03:13 PM EDT > pt informed of results 5.?Osteoporosis screening?Imaging: DEXA Hip and Spine6.?Others? Refill Meloxicam Tablet, 15 MG, 1 tablet, Orally, once daily, 90 days, 90, Refills 1.?? * Procedure Codes: G 2211 Complex e/[place] on, [address]F TOBACCO NON-USER, G8783 BP SCR PRFRM RCMDD DEFIND SCR INTVL, G8752 MOST RECENT SYSTOLIC BP < 140MM HG, G8754 MOST RECENT DIASTOLIC BP < 90MM HG * Follow Up: 6 Months * Images: Billing Information: * Visit Code: 41531 Office Visit, Est Pt., Level 4. * Procedure Codes: G2211 Complex e/[place]. [address]36F TOBACCO NON-USER. G8783 BP SCR PRFRM RCMDD DEFIND SCR INTVL. G8752 MOST RECENT SYSTOLIC BP < 140MM HG. G8754 MOST RECENT DIASTOLIC BP < 90MM HG. * Electronic signature of Sharee Martinez MD on 11/18/2024 at 10:06 AM EDT Sign off status: Pending * Provider: Jam Martinez M.D. Date: 11/01/2024 Generated for Livia arreguin/Rafael/Katherineitting on: 0 11/18/2024 10:06 AM EDT History and Physical Notes * HPI (History of Present Illness) Category Sub-Category Detail Notes Category Not es Endocrinology Hypothyroidism Pt here for 6 mo f/u. Pt states she is doing well and does not have any concerns Examination Category Sub-Category Detail Notes Category Not es General Examination Heart: RSR Lungs: clear to auscultatio n Extremities: 1+ bilateral leg tayla ma General Appearance: NAD Peripheral pulses: normal (2+) bilatera lly
--- OUTSIDE RECORDS SUMMARY | 2024-11-05 10:31 | XMS_ITS ---
Author Organization [facility] Address [address] [facility] 36 [facility] [address] [place] [phone] Care Team Providers Care Superintendent Production Name Role Phone Florencio Martinez [phone] REASON FOR VISIT mamm, colonoscopy Encounters Encounter Location Date Provider [facility] [address] [facility] [address] [place] [phone] 11/05/2024 Florencio Martinez Screening for colon cancer Z12.11 Assessments Encounter Date Diagnosis (ICD Code) Assessment Notes Treatment Notes Treatment Clinical Notes Section Notes 11/05/2024 Screening for colon cancer (ICD-10 - Z12.11) Plan Of Treatment Pending Test Test Name Order Date colonoscopy 11/05/2024 Next Appt Details Provider Name:Florencio Gold ry, 05/05/2025 09:15:00 AM, [address] [facility], [address], [place] [phone], Progress Notes * LENARD SULLIVANOB:1950 (74 yo F)Acc No.[id number]:11/05/2024 Patient: ILYA GONSALEZ :1950 A ge:74 Y S ex:Female Address:[address] [place] [address], [address] Subjective: * Chief Complaints: * M amm, colonoscopy * Medical History: * Surgical History: * Hospitalization/Major Diagno stic Procedure: * Medications: Objective: * Vitals: * Physical Examination: Assessment: * Assessment: 1. S creening for colon cancer - Z12.11 (Primary) Plan: * Treatment: * Procedure Codes: * true * Date: Generated for Livia arreguin/Rafael/Latanya on: 0 11/18/2024 10:06 AM EDT
--- NOTE | 2024-11-18 10:01 | XR_ITS ---
FINAL REPORT TECHNIQUE: Right knee 3 views CLINICAL HISTORY: knee pain COMPARISON: None FINDINGS: RIGHT KNEE: 3 views of the right knee were obtained. There is moderate medial compartment narrowing with scattered sclerotic osteophytes involving the medial joint margin. There are also osteophytes on the undersurface of the patella. There is no acute fracture or dislocation. The joint spaces are intact. There is no soft tissue abnormality. IMPRESSION: Medial compartment narrowing with osteophytes on the undersurface of the patella, without acute bony abnormality. Reviewed, Interpreted and Dictated by Hubert Carrasco MD Transcribed by Caitlyn Osborn Authenticated and . [facility]
--- OUTSIDE RECORDS SUMMARY | 2024-11-18 10:06 | XMS_ITS ---
Author Organization Unknown Vital Signs BpStanding BpSitting BpSupine Date Temperature HeartRate Weight Hei ght Spo2 Respiration Bmi HeadCircumference FieldCount TimeRecorded NeckCircumferen ce WaistCircumference Pulse 130/76 05/03 00:00 :00 97.8 94 319,3.2 0 5,9 47.1 3 6 10/18/2024 09:00:00 120/70 11/01 00:00 :00 98.0 91 312,12. 80 5,9 46.1 9 6 10/18/2024 09:00:00
--- OUTSIDE RECORDS SUMMARY | 2024-11-18 10:06 | XMS_ITS | Patient Health Record ---
[facility] [address] [place] [id number] Care Team Providers Care Member Of Technical Staff Name Role Phone Florencio Martinez Unavailable [phone] Allergies No Known Allergies Results Component Value Reference Range Notes P-Comprehensive Metabolic Pa dee (CMP) Reviewed date:05/07/2024 07:54:16 AM Interpretation:Normal Performing Lab: Notes/Report: CLIA: [id number] Eliazar Sorto MD, Customer Experience Consultant [address] [place] [address] , [address], [place] [address] Test performed by [facility], [facility] Sodium 140 135-145 mmol/L Potassium 4.5 3.5-5.3 [...] date:05/07/2024 07:54:17 AM Interpretation:Normal Performing Lab: Notes/Report: CLIA: [id number] Eliazar Sorto MD, Customer Experience Consultant [address] [place] [address] [place] [address] Test performed by [facility] Thyroxine Free (free T4) 1.32 0.86-1.76 ng/dL P-Lipid Panel Reviewed date:05/07/2024 07:54:17 AM Interpretation:Normal Performing Lab: Notes/Report: CLIA: [id number] Eliazar Sorto MD, Customer Experience Consultant [address] [place] [address] [place] [address] Test performed by [facility] Cholesterol 174 <200 mg/dL Triglycerides 94 <150 [...] Interpretation:Normal Performing Lab: Notes/Report: Test performed by [facility] [address] [place] [address] , [address], [place] [address] Eliazar Sorto MD, Customer Experience Consultant CLIA: [id number] TSH 4.03 0.43-5.25 mU/L P-Vitamin D 25-Hydroxy Reviewed date:05/07/2024 07:54:17 AM Interpretation:28.0 Performing Lab: Notes/Report: Test performed by [facility] [address] [place] [address] , [address], [place] [address] Eliazar Sorto MD, Customer Experience Consultant CLIA: [id number] Vitamin D 25-Hydroxy 28.0 30.0-100.0 ng/mL Interpretation of Vitamin D 25 OH: < 20 ng/mL - Deficiency 20 - 29 ng/mL - Insufficiency 30 - 100 ng/mL - Sufficiency > 100 ng/mL - Super-therapeutic- toxicity may occur above this level. Clinical correlation required. P-T4 Free (thyroxine) Reviewed date:11/12/2024 02:03:29 PM Interpretation: Performing Lab: Notes/Report: CLIA: [id number] Eliazar Sorto MD, Customer Experience Consultant [address] [place] [address] , [address], [place] [address] Test performed by [facility] Thyroxine Free (free T4) 1.23 0.86-1.76 ng/dL P-TSH Reviewed date:11/12/2024 02:03:29 PM Interpretation: Performing Lab: Notes/Report: Test performed by [facility] [address] [place] [address] , [place] [address] Eliazar Sorto MD, Customer Experience Consultant CLIA: [id number] TSH 3.97 0.43-5.25 mU/L P-Vitamin D 25-Hydroxy Reviewed date:11/12/2024 02:03:29 PM Interpretation:39 Performing Lab: Notes/Report: Test performed by [facility] , [address], [place] [address] Eliazar Sorto MD, Customer Experience Consultant CLIA: [id number] Vitamin D 25-Hydroxy 39.2 30.0-100.0 ng/mL Interpretation of Vitamin D 25 OH: < 20 ng/mL - Deficiency 20 - 29 ng/mL - Insufficiency 30 - 100 ng/mL - Sufficiency > 100 ng/mL - Super-therapeutic- toxicity may occur above this level. Clinical correlation required. Reason For Referral No Information Medications Medication SIG (Take, Route, Frequency, Duration) Notes Start Date End Date Status Levocetirizine Dihydrochloride 5 MG 1 tab(s) orally once a day (in the evening); Duration: 90 days Active Montelukast Sodium 10 MG 1 tablet Orally once daily; Duration: 90 days Active Calcium Carbonate-Vitamin D 600-5 MG-MCG 1 tab PO Daily Active Alendronate Sodium 70 MG 1 tab(s) orally once a week Active MiraLax 17 GM/SCOOP as directed Orally Active Levothyroxine Sodium 25 MCG 1 tab(s) ora lly once a day; Duration: 90 days Active Fluticasone Propionate 50 MCG/ACT 1 spray in each nostril Nasally daily 11/01/2024 Active Meloxicam 15 MG 1 tablet Orally once daily; Duration: 90 days Active Immunizations Vaccine Route Administration Date Status Comme nts xAdministration of injection Unknown 11/14/2016 Administered Prevnar (PCV20) IM Intramuscular 05/05/2022 Administered Fluzone PF Quad (6-35 months) Unknown 03/17/2016 Administered Fluzone High Dose (65yr and older) IM Intramuscular 02/18/2022 Administered Fluzone High Dose (65yr and older) IM Intramuscular 02/13/2023 Administered Fluzone High Dose (65yr and older) IM Intramuscular 03/08/2024 Administered COVID 19 Moderna Unknown 06/10/2020 Administered COVID 19 Moderna Unknown 07/10/2020 Administered COVID 19 Moderna Unknown 03/24/2021 Administered COVID 19 Moderna Unknown 04/29/2024 Administered Problems Problem Type SNOMED Code ICD Code Onset Dates Problem Status W/U Status Risk Notes Problem Vitamin D deficiency (37163005) Vitamin D deficiency (E55.9) Active confirmed Problem Morbid obesity (643795806) Morbid obesity (E66.01) Active confirmed Problem Age-related osteoporosis (820692819) Age-related osteoporosis without current pathological fracture (M81.0) Active confirmed Problem History of polyp of colon (situation) (807180557) History of colon polyps (Z86.010) Active confirmed Problem Acquired hypothyroidism (036351940) Acquired hypothyroidism (E03.9) Active confirmed Problem Arthritis of both knees (2620231469770761 ) Arthritis of both knees (M17.0) Active confirmed Problem Allergic rhinitis (79850901) Allergic rhinitis, unspecified seasonality, unspecified trigger (J30.9) Active confirmed Problem Osteopenia (disorder) (187584567) Osteopenia of right hip (M85.851) Active confirmed Vital Signs Heart Rate 88 /min 11/01/2024 Blood pressure diastolic 78 mm Hg 11/01/2024 Height 69 in 11/01/2024 Blood pressure systolic 134 mm Hg 11/01/2024 Weight 313.2 lbs 11/01/2024 BMI 46.25 kg/m2 11/01/2024 Encounters Encounter Location Date Provider Diagnosis [facility] [address] [place] [id number] 03/08/2024 Florencio Fisk Encounter for immunization Z23 [facility] [address] [place], [place] [id number] 05/03/2024 Florencio Fisk Acquired hypothyroid ism E03.9 ; Vitamin D deficiency E55.9 ; Age-related osteoporosis without current pathological fracture M81.0 ; Morbid obesity E66.01 and Allergic rhinitis, unspecified seasonality, unspecified trigger J30.9 [facility] [address] [place], [place] [id number] 11/01/2024 Florencio Fisk Allergic rhinitis, unspecified seasonality, unspecified trigger J30.9 ; Age-related osteoporosis without current pathological fracture M81.0 ; Acquired hypothyroidism E03.9 ; Vitamin D deficiency E55.9 ; Osteoporosis screening Z13.820 and Morbid obesity E66.01 [facility] [address] [place], [place] [id number] 01/15/2024 Florencio Martinez Allergic rhinitis, unspecified seasonality, unspecified trigger J30.9 [facility] [address] [place], [place] [id number] 05/07/2024 Florencio Fisk [facility] [address] [place], [place] [id number] 11/05/2024 Florencio Martinez Screening for colon cancer Z12.11 Assessments Encounter Date Diagnosis (ICD Code) Assessment Notes Treatment Notes Treatment Clinical Notes Section Notes 01/15/2024 Allergic rhinitis, unspecified seasonality, unspecified trigger (ICD-10 - J30.9) 03/08/2024 Encounter for immunization (ICD-10 - Z23) 05/03/2024 Vitamin D deficiency (ICD-10 - E55.9) 05/03/2024 Acquired hypothyroidism (ICD-10 - E03.9) 11/01/2024 Age-related osteoporosis without current pathological fracture (ICD-10 - M81.0) 11/01/2024 Allergic rhinitis, unspecified seasonality, unspecified trigger (ICD-10 - J30.9) 11/05/2024 Screening for colon cancer (ICD-10 - Z12.11) 11/01/2024 Acquired hypothyroidism (ICD-10 - E03.9) 05/03/2024 Age-related osteoporosis without current pathological fracture (ICD-10 - M81.0) 05/03/2024 Morbid obesity (ICD-10 - E66.01) 11/01/2024 Vitamin D deficiency (ICD-10 - E55.9) 11/01/2024 Osteoporosis screening (ICD-10 - Z13.820) 05/03/2024 Allergic rhinitis, unspecified seasonality, unspecified trigger (ICD-10 - J30.9) 11/01/2024 Morbid obesity (ICD-10 - E66.01) Plan Of Treatment Pending Test Test Name Order Date colonoscopy 11/05/2024 [facility] 11/01/2024 Next Appt Details Provider Name:Florencio Gold ry, 05/05/2025 09:15:00 AM, [address], [address], [place], [phone], Insurance Providers Payer Name Payer Address Payer Phone Subscriber Number Group Number Insured Name Patient Relationship to Insured Coverage Start Date Coverage End Date [employer] [address] [address] [place], [place] [id number] ILYA SULLIVAN Self - patient is the insured Medical (General) History Medical History History ICD Code Hypertension Allergic Rhinitis Osteoporosis, Dx: 2019 Colon Polyps Bilateral Knee Osteoarthritis Vitamin D Deficiency Hypothyroidism Surgical History Surgery Date(Month/Year) LT Shoulder Lipoma Removal LT Breast Benign Tumor Removal Cataract Colonoscopy
== END 2024-11-18 23:59 | disposition home or self-care (01) ==
LOC: RAD 09:58
PROVIDERS: PCP Family Medicine; Visit Provider Orthopaedic Surgery
DX: M25.761 Osteophyte, right knee (principal); M25.861 Other specified joint disorders, right knee
CPT/HCPCS: 73562

== ENCOUNTER 2025-01-23 08:41 | Day surgery (SDC) | payer MEDICARE, SELFPAY ==
[2025-01-21 09:54] VITALS: BMI 47.9
--- NOTE | 2025-01-22 07:08 | EXP.HP ---
History of Present Illness *Admission Date: 01/23/25 *History of present illness: Mrs. Schmid is a 74-year-old female who is here for screening/surveillance colonoscopy secondary to a personal history of adenomatous colon polyps and family history of colon cancer. The patient's brother had colon cancer at the age of 59. The patient did have a colonoscopy approximately 14 to 15 years ago at which time polyps were removed. Her colonoscopy 10-11 years ago revealed no polyps. Her colonoscopy with in October 2018 revealed 8 polyps (tubular adenomas x 5, small serrated adenomas x 2, hyperplastic polyp x 1) which were removed. Her colonoscopy with Dilan Ordonez MD in December 2021 revealed 4 polyps (tubular adenomas x 2/hyperplastic polyps x 2) which were removed. The examination is deemed medically necessary for screening/surveillance colonoscopy. The patient has been seen, interviewed and examined prior to the procedure by both myself and the anesthesia provider. [facility] Disclaimer: The information contained in this section may have been updated after the patient was seen, as this information can be updated by other users. Medical History Cataract Arthritis UTI (urinary tract infection) Surgical History H/O cataract removal with insertion of prosthetic lens H/O breast biopsy Family History Other Cancer Diabetes Social History Smoking Status: Never smoker second hand exposure: No alcohol intake: never substance use type: denies use current occupational status: retired Travel in the last 8 weeks?: Inside the [place] household members: none housing: house caffeine: Yes Have you lived/traveled outside US in past 30 days?: No Contact w/someone who lives/traveled outside US past 30 days?: No Exposure to someone with infectious disease in past 14 days?: No Do you have a fever (greater than 100.4 F or 38 C)?: No Have you tested positive for COVID-19?: No Exposed to someone with COVID-19 in past 14 days?: No Do you have a sore throat?: No Do you have a cough?: No Do you have any weakness?: No Do you have any diarrhea?: No Are you experiencing any unusual bleeding?: No Do you have any muscle aches/pain?: No Do you have any abdominal pain?: No Are you experiencing loss of taste or smell?: No Other Medical History Have you received the Flu Vaccine for this season: Yes Have you received the Pneumonia Vaccine: Yes Review of Systems Review of Systems Review of systems (narrative): Negative *Cardiovascular Comments: Negative *Gastrointestinal Comments: Negative *Genitourinary Comments: Negative *Musculoskeletal Comments: Negative *Neurologic Comments: Negative Meds Home Medications and Allergies Home Medications ?Medication ?Instructions ?Recorded ?Confirmed ?Type levocetirizine 5 mg tablet 5 mg PO DAILY allergies 30 days 10/09/17 01/21/25 History ##30 guaifenesin 1,200 mg tablet, 1,200 mg PO NEEDED PRN mucous 11/13/18 01/21/25 History extended release 12 hr alendronate 70 mg tablet 70 mg PO WEEKLY BONES 01/10/22 01/21/25 History calcium ER 600 mg (as carb,cit)-D3 1 tab PO DAILY Supplement 01/10/22 01/21/25 History 12.5 mcg (500 unit) tablet, ext.rel polyethylene glycol 3350 17 gram 17 gm PO DAILY CONSTIPATION 01/10/22 01/21/25 History oral powder packet meloxicam 15 mg tablet See Rx Instructions .Route 12/27/23 01/21/25 Rx .COMPLEX #30 tabs fluticasone propionate 50 1 spray intranasal DAILY 12/26/24 01/21/25 History mcg/actuation nasal spray,suspension levothyroxine 25 mcg tablet 25 mcg PO DAILY 12/26/24 01/21/25 History sodium,potassium,mag sulfates 17.5 See Rx Instructions PO .COMPLEX 01/10/25 Rx gram-3.13 gram-1.6 gram oral soln #354 mL (Suprep Bowel Prep Kit) New Prescriptions to Start Prescriptions: Allergies Allergy/AdvReac Type Severity Reaction Status Date / Time No Known Allergies Allergy Verified 01/21/25 09:52 Exam Data for Last 24 hours I & O for Last 24 hours: Intake & Output 01/19/25 01/20/25 01/21/25 01/22/25 23:59 23:59 23:59 23:59 Weight 315 lb *Routine HEENT Exam Head: Present normocephalic Eye: Present EOMI and PERRL ENT: Present mucous membranes moist *Routine Neck Exam Neck: Present supple *Routine Respiratory Exam Respiratory: Present CTA bilaterally *Routine Cardiovascular Exam Cardiovascular: Present RRR *Routine Abdominal Exam Abdominal: Present soft and normoactive bowel sounds; Absent tenderness *Routine Rectal Exam Rectal:: deferred *Routine Genitalia Exam Genitalia:: deferred *Routine Extremities Exam Extremities: Absent cyanosis, clubbing or edema *Routine Skin Exam Skin: Present warm; Absent rash *Routine Neurological Exam Neurological: Present alert and oriented X3 Assessment and Plan *Assessment and plan (1) Personal history of adenomatous and serrated colon polyps: Status: Acute Category: Medical Code(s): Z86.0101 - Personal history of adenomatous and serrated colon polyps (2) Family history of colon cancer: Status: Acute Category: Medical Code(s): Z80.0 - Family history of malignant neoplasm of digestive organs (3) Screening for colon cancer: Status: Acute Category: Medical Code(s): Z12.11 - Encounter for screening for malignant neoplasm of colon Plan A/P: 1. Personal history of adenomatous colon polyps and family history of colon cancer (brother) is the preprocedural diagnosis. The patient will be anesthetized/sedated using MAC sedation. The patient has been seen and examined. Cardiac and lung assessment prior to the examination is stable. Proceed with planned screening/surveillance colonoscopy.
[2025-01-23] MEDS: LACTATED RINGERS 1000ML 1,000 ML 50 ML IV (08:55)
[2025-01-23 08:56] VITALS: BP 120/73; PULSE 93; RESP 18; TEMP 36.6; O2SAT 99
--- NOTE | 2025-01-23 09:44 | EXP.ANES.CKL ---
[facility] Disclaimer: The information contained in this section may have been updated after the patient was seen, as this information can be updated by other users. Medical History Cataract Arthritis UTI (urinary tract infection) Surgical History H/O cataract removal with insertion of prosthetic lens H/O breast biopsy Family History Other Cancer Diabetes Social History Smoking Status: Never smoker second hand exposure: No alcohol intake: never substance use type: denies use current occupational status: retired Travel in the last 8 weeks?: Inside the [place] household members: none housing: house caffeine: Yes Have you lived/traveled outside US in past 30 days?: No Contact w/someone who lives/traveled outside US past 30 days?: No Exposure to someone with infectious disease in past 14 days?: No Do you have a fever (greater than 100.4 F or 38 C)?: No Have you tested positive for COVID-19?: No Exposed to someone with COVID-19 in past 14 days?: No Do you have a sore throat?: No Do you have a cough?: No Do you have any weakness?: No Do you have any diarrhea?: No Are you experiencing any unusual bleeding?: No Do you have any muscle aches/pain?: No Do you have any abdominal pain?: No Are you experiencing loss of taste or smell?: No [facility] Anesthesia Checklist Patient Identification Patient Identification: Arm Band and Verbal (Name & ) Structural Data Admitted From: Home Planned Operative Procedure/s: colonscopy Consent for Planned Operative Procedure(s) Verified: Yes Verified Documents: Surgical Consent and History and Physical NPO Status Verified Time NPO: 00:00 Additional verifications Anesthesia Reactions: No Previous Colonoscopy: Yes Airway Assessment Mallampati Score:: Class II Dentition: Good Dentition Neurological Assessment Level of Consciousness: Awake, Alert and Appropriate Hx Seizures: No Numbness or tingling in extremities: No Anesthesia Plan Anesthesia Risk discussed: Yes Anesthesia Plan: Verified ASA Class: II Anesthesia Type: MAC
--- NOTE | 2025-01-23 09:52 | HMH.PROCNOTE ---
[facility] Procedure Note Date: 01/23/25 Time: 10:10 Procedure Note:: Colonoscopy Procedure Report: Colonoscopy Endoscopist: Julius Vasquez II, MD Referring physician: Florencio Martinez MD Date of Procedure: January 23, 2025 Equipment: Olympus [id number] adult colonoscope Sedation: MAC sedation Indication: Mrs. Schmid is a 74-year-old female who is here for screening/surveillance colonoscopy secondary to a personal history of adenomatous colon polyps and family history of colon cancer. The patient's brother had colon cancer at the age of 59. The patient did have a colonoscopy approximately 14 to 15 years ago at which time polyps were removed. Her colonoscopy 10-11 years ago revealed no polyps. Her colonoscopy with in October 2018 revealed 8 polyps (tubular adenomas x 5, small serrated adenomas x 2, hyperplastic polyp x 1) which were removed. Her colonoscopy with Dilan Ordonez MD in December 2021 revealed 4 polyps (tubular adenomas x 2/hyperplastic polyps x 2) which were removed. The patient reports no abdominal pain, weight loss, change in her bowel habits or rectal bleeding. Procedure: Prior to the procedure, a history and physical exam was performed, and patient's medications and allergies were reviewed. The risks, benefits and alternatives of the sedation and procedure were discussed with the patient. All questions were answered and informed consent was obtained. The patient was brought to the procedure room. Patient identification and proposed procedure were verified by the physician and the nurse. The patient was placed in a left lateral decubitus position and the scope was passed under direct vision. Throughout the procedure, the patient's blood pressure, pulse, and oxygen saturations were monitored continuously. The colonoscopy was accomplished without difficulty. The patient tolerated the procedure well. Findings: On digital rectal examination there was normal rectal tone. There were no external hemorrhoids. The colonoscope was introduced through the anal canal to the rectum and advanced to the cecum. The ileocecal valve and appendiceal orifice were identified. The scope was advanced a short distance into the ileum which appeared grossly normal. The scope was then withdrawn into the colon. The cecum, ascending and transverse colon and mucosa were grossly normal. There were scattered diverticuli throughout the descending and sigmoid colon (LEFT colon). The rectum itself was normal. Upon retroflexion within the rectum there were grade 2 internal hemorrhoids. The preparation was excellent throughout with Glade Preparation Score of 9. The cecal time was 12 minutes. Impression: 1. Left-sided diverticulosis 2. Grade 2 internal hemorrhoids Plan: Based upon her family history and prior history of adenomatous colon polyps, I would recommend repeat screening/surveillance colonoscopy again in 5 years. I would encourage psyllium bulking fiber supplementation on a maintenance basis.
[2025-01-23 10:12] VITALS: BP 85/49; PULSE 79; RESP 18; TEMP 36.2; O2SAT 92
[2025-01-23 10:22] VITALS: BP 113/63; PULSE 82; RESP 18; TEMP 36.2; O2SAT 92
[2025-01-23 10:32] VITALS: BP 147/84; PULSE 80; RESP 18; TEMP 36.2; O2SAT 96
[2025-01-23 10:42] VITALS: BP 121/74; PULSE 77; RESP 18; TEMP 36.2; O2SAT 97
== END 2025-01-23 10:57 | disposition home or self-care (01) ==
PROVIDERS: PCP Family Medicine; Visit Provider Internal Medicine Gastroenterology
PROC: 0DJD8ZZ Inspection of Lower Intestinal Tract, Via Natural or Artificial Opening Endoscopic (ICD-10-PCS; CPT 45378; principal; 2025-01-23 10:30)
DX: Z12.11 Encounter for screening for malignant neoplasm of colon (principal); K57.30 Diverticulosis of large intestine without perforation or abscess without bleeding; K64.1 Second degree hemorrhoids; Z86.0101 Personal history of adenomatous and serrated colon polyps; Z80.0 Family history of malignant neoplasm of digestive organs; Z79.890 Hormone replacement therapy; Z79.899 Other long term (current) drug therapy
CPT/HCPCS: 45378; J2003; J2704; J7120